=== PATIENT | male | born 1945 | race Caucasian/White ===

== ENCOUNTER 2018-03-10 15:57 | Emergency (ER) | payer OTHER, MEDICARE ==
[2018-03-10] MEDS ORDERED: NS 500 ML IV ONE (16:11)
[2018-03-10] MEDS ORDERED: ASPIRIN 81 MG CHEWABLE TAB PO ONE (16:11)
[2018-03-10 16:23] LABS: PLATELET COUNT 146 10^3/uL (150-400)
[2018-03-10 16:35] LABS: INR 1.07 (0.83-1.16); PROTIME(PATIENT) 14.1 SEC (12.0-15.0)
--- NOTE | 2018-03-10 17:35 | EDPHY ---
H & P Time Seen by Provider: 03/10/18 16:10 HPI/ROS: HPI Epigastric pain. 72-year-old male by private vehicle with his . This patient has a history of coronary artery disease with 3 stents placed in the past. He reports that he saw his dorr operator in [place] about 3 weeks ago and had a full cardiac workup including a nuclear stress test. All of this was unremarkable. He is from [place] and currently visiting his daughter who lives here in [place]. He is with his . He reports that he stretched raising his arms above his head at about noon today. After he did this he developed a pain in his epigastric area right where his ribs meet his sternum. He reports that this pain is exacerbated by movement. He is concerned about his heart because of his previous history of heart disease. He has not had any nausea or vomiting. He states that he does have gallstones. No fever. He has had no bloody or melenic stool. He denies any associated shortness of breath. No other complaints. ROS: Constitutional: No fever, no chills. No weakness. Eyes: No discharge. No changes in vision. ENT: No sore throat. No nasal congestion or rhinorrhea. Respiratory: No cough. No shortness of breath. Cardiac: No chest pain, no palpitations. Gastrointestinal: As above, no vomiting, no diarrhea. Genitourinary: No hematuria. No dysuria or increased frequency with urination. Musculoskeletal: No back pain. No neck pain. No myalgias or arthralgias. Skin: No rashes. Neurological: No headache. No focal weakness or altered sensation. Past medical history: Cardiac stents x3. As above. Possible gallstones. Hyperlipidemia. Hypertension. Social history: Nonsmoker. Here with his . No alcohol. Physical Exam: General Appearance: Alert, no distress. This patient is responding to questions appropriately and in full sentences. This patient appears well- hydrated and well-nourished. Eyes: Pupils equal and round no pallor or injection. No lid edema, erythema or injection. Respiratory: There are no retractions, lungs are clear to auscultation with good air movement bilaterally. Cardiovascular: Regular rate and rhythm. No murmur. Gastrointestinal: Abdomen is soft and nontender on deep palpation, no masses, bowel sounds normal. No focal tenderness at McBurney's point. No Reich sign. Neurological: Motor sensory function is grossly intact. Cranial nerves are normal. Gait is normal. Skin: Warm and dry, no rashes. Musculoskeletal: Neck is supple and nontender. Extremities are symmetrical. All joints range without pain or impingement. Psychiatric: No agitation. No depression. Database: EKG: EKG time is 4:06 p.m.; EKG shows a narrow complex normal sinus rhythm with a ventricular rate of 72. The GA, QRS, QT intervals are within normal limits. There are no ST-T wave changes indicative of ischemic or injury pattern. No evidence of right heart strain. Interpreted by me. Imaging: Chest x-ray AP portable; the cardiac mediastinal silhouette is unremarkable. No evidence of infiltrate or pneumothorax. No acute cardiopulmonary disease process noted. Interpreted by me. Right upper quadrant ultrasound: 13 mm gallstone lodged in the gallbladder neck. Gallbladder in ductal system otherwise unremarkable. Results were discussed with staff radiologist Dr. Esvin Hill. Procedures: Emergency department course: IV was placed. The patient was placed on a entry level account executive. Vital signs reviewed. He is moderately hypertensive, vital signs otherwise normal. An IV was started. He was given 500 cc of IV normal saline. He will be given 20 mg of IV Pepcid. EKG obtained and reviewed by myself. 5:30 p.m., patient re-evaluated, resting comfortably. He feels not moving he does not have any pain. When he does move he complains of this pain right at the high epigastric area. He does admit to a history of gallstones. He reports that he has 1 large gallstone. Ultrasound of the gallbladder will be obtained. I will also check his liver function tests and his lipase. Right now he is declining any pain medication. He denies any chest pain or shortness of breath. 6:30 p.m., patient re-evaluated. Resting comfortably at this time. Results of liver function tests lipase, blood work and ultrasound results reviewed with him and his . His heart score based on his risk factors, previous history and age puts him in the moderate risk category. I discussed the reasoning behind this evaluation score. I discussed admitting the patient for observation in the hospital and further evaluation. He does not want to do this. The patient competently engages in shared decision making. They demonstrate capacitance to make decisions. He understands the risks of being discharged but is asking to be discharged despite this. He plans on returning to [place] on Monday morning. He will follow up with his primary care physician at that time. Return to emergency department precautions have been thoroughly reviewed with him. All of his questions were answered. He was discharged from the emergency department in good condition with his . Differential Diagnosis: The differential diagnosis on this patient includes but is not limited to costal chondritis up abdominal muscle strain. Pancreatitis, cholecystitis, acute coronary syndrome, pneumothorax, pulmonary embolism unlikely. This represents a partial list of diagnoses considered. These considerations are based on history, physical exam, past history, reassessment and diagnostic testing. Smoking Status: Never smoked Constitutional: Initial Vital Signs Temperature (C) 36.7 C 03/10/18 16:04 Heart Rate 84 03/10/18 16:04 Respiratory Rate 83 H 03/10/18 16:04 Blood Pressure 146/85 H 03/10/18 16:04 O2 Sat (%) 94 03/10/18 16:04 O2 Delivery Mode Room Air Allergies/Adverse Reactions: No Known Allergies Allergy (Unverified 03/10/18 16:04) Home Medications: Medication Instructions Recorded Aspirin 81mg (*) 03/10/18 FENOFIBRATE 03/10/18 Irbesartan 03/10/18 Pantoprazole Sodium 03/10/18 SIMVASTATIN 03/10/18 Medical Decision Making - Data Points Laboratory Results: Laboratory Results 03/10/18 16:15 03/10/18 16:15 Medications Given: Discontinued Medications Aspirin (Aspirin) 324 mg PO EDNOW ONE Stop: 03/10/18 16:12 Last Admin: 03/10/18 16:37 Dose: 81 mg Sodium Chloride (Ns) 500 mls @ 1,000 mls/hr IV EDNOW ONE PRN Reason: Protocol Stop: 03/10/18 16:40 Last Admin: 03/10/18 16:36 Dose: 500 mls Famotidine/Sodium Chloride (Pepcid 20 Mg (Premix)) 50 mls @ 200 mls/hr IV EDNOW ONE Stop: 03/10/18 17:58 Last Admin: 03/10/18 17:50 Dose: 50 mls Point of Care Test Results: Chemistry 03/10/18 16:18 POC Troponin I 0.01 ng/mL ng/mL (0.00-0.08) Departure - Departure Disposition: Home, Routine, Self-Care Clinical Impression: Epigastric pain Condition: Good Instructions: Epigastric Pain (ED) Additional Instructions: Read and follow provided instructions. Follow-up with your primary care physician on Monday for re-evaluation as discussed. Avoid any strenuous activity or activity that exacerbates your pain. Return to the emergency department for worsening pain, chest pain, shortness of breath or other serious concerns. Referrals: JAN BURGOS [Other] - As per Instructions
[2018-03-10] MEDS ORDERED: FAMOTIDINE 20 MG/NACL 50 ML IV ONE (17:44)
[2018-03-10 18:44] VITALS: BP 143/63
--- NOTE | 2018-03-16 06:45 | CPEKG ---
Test Reason : OPEN Blood Pressure : / mmHG Vent. Rate : 072 BPM Atrial Rate : 072 BPM P-R Int : 147 ms QRS Dur : 098 ms QT Int : 366 ms P-R-T Axes : 050 015 065 degrees QTc Int : 401 ms Sinus rhythm Confirmed by Quique Gonzalez ([id number]) on 03/16/2018 6:45:30 AM Referred By: Confirmed By:Quique Gonzalez
== END 2018-03-10 18:43 | disposition home or self-care (01) ==
DX: R10.13 Epigastric pain (principal); K80.20 Calculus of gallbladder without cholecystitis without obstruction; I25.10 Atherosclerotic heart disease of native coronary artery without angina pectoris; I10 Essential (primary) hypertension; E78.5 Hyperlipidemia, unspecified; Z95.5 Presence of coronary angioplasty implant and graft
CPT/HCPCS: 84484-PO; 96374